=== PATIENT | male | born 1965 ===

== ENCOUNTER 2017-05-05 15:33 | Emergency (ER) | payer MEDICAID ==
--- NOTE | 2017-05-05 15:53 | Emergency Department Report ---
Stated Complaint: ABD PAIN Time Seen by Provider: 05/05/17 15:50 - HPI History of Present Illness: PT c/o epigastric pain x 4-5 days. PT states he feels full. - ROS Review of Systems: - n/v - Exam Physical Exam: PT alert R sided facial droop noted no acute resp distress MSE screening note: Focused history and physical exam performed. Due to findings the following was ordered: ekg, xr, labs ED Disposition for MSE Condition: Stable
[2017-05-05 15:55] VITALS: BP 159/72
[2017-05-05 16:48] LABS: Basophils % (Auto) 0.3 % (0.0-1.8); Eosinophils % (Auto) 4.7 % (0.0-4.3); Hematocrit 38.8 % (35.5-45.6); Hemoglobin 13.5 gm/dl (11.8-15.2); Mean Corpuscular HGB Conc 35 % (32-34); Mean Corpuscular Hemoglobin 31 pg (28-32); Mean Corpuscular Volume 89 fl (84-94); Platelet Count 173 K/mm3 (140-440); Red Blood Count 4.37 M/mm3 (3.65-5.03); Red Cell Distribution Width 13.5 % (13.2-15.2); White Blood Count 8.6 K/mm3 (4.5-11.0)
[2017-05-05 16:57] LABS: Bilirubin,Total 1.2 mg/dL (0.1-1.2); Calcium 8.9 mg/dL (8.4-10.2); Chloride 103.3 mmol/L (98-107); Potassium 4.3 mmol/L (3.6-5.0)
[2017-05-05 16:59] LABS: INR 1.05 (0.87-1.13)
[2017-05-05 17:00] LABS: Partial Thromboplastin Time 30.3 Sec. (24.2-36.6)
[2017-05-05 18:16] LABS: Bacteria,Urine 1+ /HPF (Negative); Bilirubin,Urine NEG (Negative); Blood,Urine SM (Negative); Ketones,Urine NEG (Negative); Leukocyte Esterase,Urine NEG (Negative); Mucus,Urine FEW /HPF; Nitrite,Urine NEG (Negative); Urobilinogen,Urine < 2.0 mg/dL (<2.0)
--- NOTE | 2017-05-06 07:33 | XRay Report ---
ROUTINE CHEST, TWO VIEWS: HISTORY: chest pain. There is poor inspiration. The trachea, heart, mediastinal contour, lung chandler and bony thorax are unremarkable. IMPRESSION: Unremarkable chest x-ray.
== END 2017-05-05 20:17 | disposition left against medical advice (07) ==
LOC: ED 15:33
DX: R10.13 Epigastric pain (principal); Z53.21 Procedure and treatment not carried out due to patient leaving prior to being seen by health care provider
CPT/HCPCS: 36415; 71020; 80053; 80061; 81001; 83690; 84484; 85025; 85610; 85730; 93005; 93010